=== PATIENT | male | born 1960 | race Caucasian/White ===

== ENCOUNTER → 2024-04-08 09:58 | Outpatient (REF) | payer OTHER, SELFPAY | LOC: RCS 09:58 | PROVIDERS: ATTENDING PHYSICIAN Internal Medicine Cardiovascular Disease; FAMILY PHYSICIAN Emergency Medicine | DX: I05.9 Rheumatic mitral valve disease, unspecified (principal) | CPT/HCPCS: 93306 ==

== ENCOUNTER 2024-06-21 11:24 | Emergency (ER) | payer OTHER, SELFPAY ==
[2024-06-21] VITALS (17 sets, daily range): BP systolic 82–106; BP diastolic 61–80; BMI 23.7
--- NOTE | 2024-06-21 11:41 | ED.GENMED ---
History of Present Illness
<Kevin Lan PA-C - Last Filed: 06/21/24 14:29>
General
Chief Complaint: Heart Rate Problem
Time Seen by Provider: 06/21/24 11:35
History of Present Illness
History of Present Illness:
64-year-old male presents the emergency department for evaluation of abrupt onset of heart palpitations developed this morning. He used his Apple Watch that alerted him to A-fib. He has a history of paroxysmal A-fib and has had a cardiac ablation
as well as cardioversion in the past. He took a dose of Eliquis and this morning in anticipation of a potential cardioversion. He also took an extra dose of his metoprolol. Denies any chest pain or dyspnea
Past History
<Kevin Lan PA-C - Last Filed: 06/21/24 14:29>
Past History
ED Past Medical History: Arrthythmia (Atrial fib), Hypercholesterolemia and Hyperthyroidism; Negative Asthma, HTN or NIDDM
ED Past Surgical History: Other (Hernia repair, hemorrhoid surgery)
Social History
Tobacco: Non-smoker
Alcohol: Occasional
Personal:
Living: with family
Review of Systems
<Kevin Lan PA-C - Last Filed: 06/21/24 14:29>
Review of Systems
Allergies reviewed?: Yes
All Other Systems: ROS reviewed and negative except as documented in HPI and ROS
Phy Exam
<Kevin Lan PA-C - Last Filed: 06/21/24 14:29>
Physical Exam
Physical Exam:
GEN: Well appearing, NAD, WDWN
HEENT: Oral mucosa moist, no scleral icterus
Cardiac: Irregular and tachycardic, no murmur
Lung: No respiratory distress, no tachypnea, lungs clear to auscultation bilaterally
MSK: No gross deformity or injuries
Skin: Good color, no pallor or jaundice, no rashes
Neuro: AO x3, moves all extremities freely
Psych: Calm, cooperative
Course
<Kevin Lan PA-C - Last Filed: 06/21/24 14:29>
Orders/Labs/Results
Orders:
Orders
06/21/24 11:30
EKG [Electrocardiogram (*1)] Urgent
Reason for Study: Atrial Fibrillation
EKG- Treatment ONCE
06/21/24 11:40
0.9% Sodium Chloride 1000 ml [Nss] 1,000 ml IV BOLUS
06/21/24 12:03
Basic Metabolic Panel Urgent
Magnesium Urgent
06/21/24 12:46
Propofol [Diprivan] 20 ml .ROUTE .STK-MED
06/21/24 13:13
EKG [Electrocardiogram (*1)] Urgent
Reason for Study: Other
Other Reason for Exam: s/p cardioversion
EKG- Treatment ONCE
Abnormal Lab Results
06/21/24
12:03
Chloride 108 H mmol/L
(98-107)
Carbon Dioxide 20 L mmol/L
(22-30)
Glucose 124 H mg/dl
(70-99)
06/21/24 12:03
Vital Signs
Initial and Last Documented VS:
Initial Vital Signs
Temp Pulse Resp BP Pulse Ox
98.0 F 77 16 94/80 98
06/21/24 11:26 06/21/24 11:26 06/21/24 11:26 06/21/24 11:26 06/21/24 11:26
Last Documented Vital Signs
Temp Pulse Resp BP Pulse Ox
98.0 F 62 18 106/73 98
06/21/24 14:00 06/21/24 14:15 06/21/24 14:15 06/21/24 14:15 06/21/24 14:15
<Arsenio Snider MD - Last Filed: 06/21/24 13:50>
Orders/Labs/Results
Orders:
Orders
06/21/24 11:30
EKG [Electrocardiogram (*1)] Urgent
Reason for Study: Atrial Fibrillation
EKG- Treatment ONCE
06/21/24 11:40
0.9% Sodium Chloride 1000 ml [Nss] 1,000 ml IV BOLUS
06/21/24 12:03
Basic Metabolic Panel Urgent
Magnesium Urgent
06/21/24 12:46
Propofol [Diprivan] 20 ml .ROUTE .STK-MED
06/21/24 13:13
EKG [Electrocardiogram (*1)] Urgent
Reason for Study: Other
Other Reason for Exam: s/p cardioversion
EKG- Treatment ONCE
Abnormal Lab Results
06/21/24
12:03
Chloride 108 H mmol/L
(98-107)
Carbon Dioxide 20 L mmol/L
(22-30)
Glucose 124 H mg/dl
(70-99)
06/21/24 12:03
Vital Signs
Initial and Last Documented VS:
Initial Vital Signs
Temp Pulse Resp BP Pulse Ox
98.0 F 77 16 94/80 98
06/21/24 11:26 06/21/24 11:26 06/21/24 11:26 06/21/24 11:26 06/21/24 11:26
Last Documented Vital Signs
Temp Pulse Resp BP Pulse Ox
98.0 F 62 18 106/73 98
06/21/24 14:00 06/21/24 14:15 06/21/24 14:15 06/21/24 14:15 06/21/24 14:15
Procedures
<Kevin Lan PA-C - Last Filed: 06/21/24 14:29>
Cardioversion
Indication:: Afib
Performed by:: Kevin Lan PA-C, Anthony Snider MD
Synchronized?: Yes
Energy Used: 150 joules
Number of attempts: 1
Successful?: Yes
Complications: None
ASA Risk Score: Class II
Any reaction or bad outcome to prior sedation/anesthesia?: No history of a reaction
Sedation level to be attained: moderate
Chart and allergies reviewed: Yes
Patient reassessed prior to sedation: Yes
Time out completed at (validating right patient & procedure): 13:05
History of difficult intubation: No
Airway free of obstruction: Yes
Patient has a gag reflex: Yes
Patient is able to open mouth: Yes
Patient has no dentures: Yes
Patient has no loose teeth: Yes
Medication administered by Provider during Moderate Sedation: IV Propofol (mg)
Total dose administered: 40
Time drug administered: 13:06
Start Time: 13:06
Stop Time: 13:16
<Kevin Lan PA-C - Last Filed: 06/21/24 14:29>
MDM/Problems Addressed
MDM/Problems Addressed:
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 Cardioversion was successful with no procedural complications. Remained in normal sinus rhythm and was
discharged stable condition. He is advised to take his Eliquis for 30 days follow-up with his research program coordinator during that timeframe for further direction
<Kevin Lan PA-C - Last Filed: 06/21/24 14:29>
*Critical Care Note
Total Time (30-74mins, 75-104mins- exclusive of procedures): Not Applicable
ED Attending Note
<Kevin Lan PA-C - Last Filed: 06/21/24 14:29>
-
Portions of this chart may have been created with voice recognition software.� Occasional wrong word or��sound alike� substitutions may have occurred due to the inherent limitations of voice recognition software.
<Arsenio Snider MD - Last Filed: 06/21/24 13:50>
ED Attending Note
Patient seen and examined by attending physician: Yes
ED Attending Note:
I have seen and evaluated the patient with a [id number] encounter. I have spoken to the advance practicer provider and involved in the medical history, the physical exam, medical decision making.
Evaluation and management service: agree unless noted differently below.
Results interpretation: agree unless noted differently below.
Focused HPI: 64-year-old male with a past medical history as documented notable for paroxysmal A-fib who presents to the emergency room for symptomatic A-fib. Patient reports that he had acute onset palpitations that woke him up around 4:30 AM and
his Apple Watch told him that he was in atrial fibrillation. He denies any chest pain. Denies shortness of breath. Denies any dizziness. He has had similar episodes in the past. He is not on Eliquis chronically but took a dose this morning
prior to coming to the emergency room.
Physical exam: Soft blood pressure 94/80, heart rate ranging from 70s to 120s. He has no cardiac rubs gallops or murmurs but irregularly irregular rhythm on auscultation. Lungs clear to auscultation bilaterally. No edema in the extremities. Warm
and well-perfused extremities.
Medical Decision Makin-year-old male presents with symptomatic atrial fibrillation. Unclear time of onset 4:30 AM today and also noted on his Apple Watch to confirm. EKG shows A-fib with RVR. Given clear onset patient reasonable candidate
for ED cardioversion; will have him continue Eliquis for 30 days post cardioversion and follow-up with his research program coordinator. Will check screening blood work prior to cardioversion. Patient agreeable to this plan.
Screening blood work no clinically significant abnormalities. Cardioverted as documented procedure note with no complications. Will monitor after cardioversion and discharge if remains asymptomatic and in sinus rhythm.
Discharge Plan
Departure
Patient Disposition: Home (Routine Discharge)
Date of Disposition: 06/21/24
Time of Disposition: 14:03
Patient with high blood pressure during this ER visit?: No
Discharge Problem:
Paroxysmal atrial fibrillation
Instructions: Atrial Fibrillation (DC)
Prescriptions:
No Action
brimonidine-timolol [Combigan] 1 DROP drops
1 drp RIGHT EYE BID
aspirin 81 MG tablet,delayed release (DR/EC)
81 mg PO DAILY
metoprolol succinate 25 MG tablet extended release 24 hr
25 mg PO BID
rosuvastatin [Crestor] 20 MG tablet
20 mg PO DAILY
tadalafil [Cialis] 5 MG tablet
5 mg PO PRN PRN (Reason: other)
apixaban [Eliquis] 5 MG tablet
5 mg PO BID
Referrals:
Radha Song MD [Family Provider] -
Activity Restrictions/Additional Instructions:
Continue your Eliquis for 30 days (until 07/22/24)
Follow up with your research program coordinator for further discussion
Interventions
Interventions:
*Risk Screen - Suicide Last Done: 06/21/24 11:26
*General Assessment Last Done: 06/21/24 11:26
*Neglect/Abuse Screening Last Done: 06/21/24 11:26
ED- Fall Risk Assessment Last Done: 06/21/24 11:53
*ED COVID-19 Vaccine History Last Done: 06/21/24 11:26
ED- Cardiac Assessment Last Done: 06/21/24 11:53
ED- Pulmonary Assessment Last Done: 06/21/24 11:53
Discharge Date and Time
Print Language: FAROESE
[2024-06-21] MEDS: NSS 1000 IV (12:01)
[2024-06-21 12:27] LABS: Blood Urea Nitrogen 20 mg/dl (9-20); Calcium 9.8 mg/dl (8.4-10.2); Carbon Dioxide 20 mmol/L (22-30); Chloride 108 mmol/L (98-107); Estimated Creatinine Clearance 73 ml/min; Glucose 124 mg/dl (70-99); Magnesium 1.9 mg/dl (1.6-2.3); Potassium 4.4 mmol/L (3.5-5.1); Sodium 137 mmol/L (135-145); eGFR > 60.00
--- NOTE | 2024-06-21 13:08 | EDRN ---
Patient medicated with Diprivan 40mg IV by . Patient shocked with 150 J.
--- NOTE | 2024-06-21 14:50 | EDRN ---
Reviewed discharge instructions with patient and his sister. Verbalized understanding. Taken to lobby in wheelchair.
== END 2024-06-21 14:45 | disposition home or self-care (01) ==
LOC: EMR 11:24
PROVIDERS: Physician Assistant; EMERGENCY PHYSICIAN Emergency Medicine; FAMILY PHYSICIAN Emergency Medicine
DX: I48.0 Paroxysmal atrial fibrillation (principal); E78.00 Pure hypercholesterolemia, unspecified; E05.90 Thyrotoxicosis, unspecified without thyrotoxic crisis or storm; Z87.19 Personal history of other diseases of the digestive system
CPT/HCPCS: 99283; 92960; 96360; 80048; 83735; 93005

== ENCOUNTER → 2025-02-17 19:31 | Outpatient (REF) | payer OTHER, SELFPAY | LOC: MRI 3T 19:31 | PROVIDERS: ATTENDING PHYSICIAN Urology; FAMILY PHYSICIAN Emergency Medicine | DX: R39.89 Other symptoms and signs involving the genitourinary system (principal) | CPT/HCPCS: 72197; A9575 ==

== ENCOUNTER → 2025-02-21 08:16 | Outpatient (REF) | payer OTHER, SELFPAY | LOC: RCS 08:16 | PROVIDERS: ATTENDING PHYSICIAN Physician Assistant; FAMILY PHYSICIAN Emergency Medicine | DX: I48.19 Other persistent atrial fibrillation (principal); I45.10 Unspecified right bundle-branch block | CPT/HCPCS: 93306 ==

== ENCOUNTER → 2025-08-17 11:50 | Outpatient (REF) | payer OTHER, SELFPAY | LOC: PAVMRI 11:50 | PROVIDERS: ATTENDING PHYSICIAN Emergency Medicine | DX: I48.0 Paroxysmal atrial fibrillation (principal); R55 Syncope and collapse | CPT/HCPCS: 70553; A9575 ==